=== PATIENT | female | born 1970 | race Caucasian/White ===

== ENCOUNTER 2017-12-07 01:40 | Emergency (ER) | payer SELFPAY ==
[~2017-12-07] VITALS: Ht 162.5 cm; Wt 72.6 kg
[2017-12-07] MEDS ORDERED: KEFLEX500 M1 PO (02:03)
[2017-12-07] MEDS ORDERED: Kenalog 0.5% Cr15 GM T (02:03)
== END 2017-12-07 02:25 | disposition home or self-care (01) ==
LOC: ED 01:40
DX: S70.361A Insect bite (nonvenomous), right thigh, initial encounter (principal); L08.9 Local infection of the skin and subcutaneous tissue, unspecified; W57.XXXA Bitten or stung by nonvenomous insect and other nonvenomous arthropods, initial encounter; Y93.89 Activity, other specified; Y92.89 Other specified places as the place of occurrence of the external cause; Y99.9 Unspecified external cause status